=== PATIENT | female | born 1965 | race Caucasian/White ===

== ENCOUNTER 2018-05-03 14:27 | Emergency (ER) | payer BC ==
[2018-05-03 14:40] VITALS: BP 158/94
--- NOTE | 2018-05-03 15:17 | RAD ---
INDICATION: Right foot pain. TECHNIQUE: 3 views of the right foot were obtained. 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 No fracture is seen. There is a small spur arising from the inferior calcaneus. IMPRESSION: NO EVIDENCE FOR FRACTURE.
--- NOTE | 2018-05-03 16:28 | UC ---
Emmanuel Dailey Natalie, scribed for Bao Leggett MD on 05/03/18 at 1552 . Lower Extremity/Ankle HPI - HPI Summary HPI Summary: The patient is a 52 y/o F presenting to [facility] c/o pain and swelling in the plantar side of the right heel starting a few months ago, but worsening in the last three weeks. The pain is currently rated 4/10 in severity, but she states that the pain gets sharp enough to where she can't walk on it. The pain is especially worse in the morning with the 1st step and gets better throughout the day. She states she ran a 5K marathon in February 2018, and the pain seems to have been worsening since then, although she had the pain before running. She denies any injury to the foot. She states she does wear flip flops and shoes without support. She does not have a current orthopedist and has not sought out any medical attention prior to this. - History of Current Complaint Chief Complaint: UCLowerExtremity Stated Complaint: FOOT PAIN Time Seen by Provider: 05/03/18 14:48 Hx Obtained From: Patient Onset/Duration: Gradual Onset, Lasting Weeks, Still Present Severity Initially: Mild Severity Currently: Moderate Pain Intensity: 4 Pain Scale Used: 0-10 Numeric Aggravating Factor(s): Ambulation Alleviating Factor(s): Rest Able to Bear Weight: Yes - Allergies/Home Medications Allergies/Adverse Reactions: Allergies Allergy/AdvReac Type Severity Reaction Status Date / Time No Known Allergies Allergy Verified 05/03/18 14:40 Home Medications: Home Medications Letrozole 1 tab PO DAILY 05/03/18 [History Confirmed 05/03/18] PMH/Surg Hx/FS Hx/Imm Hx - Additional Past Medical History Additional PMH: POSITIVE: breast cancer Previously Healthy: Yes Other Endocrine History: NEGATIVE: diabetes Other Cardiovascular History: negative Other Respiratory History: negative Other GI/ History: negative Other Neurological History: negative Other Psychological History: negative Other Cancer History: negative Other History Of: Negative For: Anticoagulant Therapy - Surgical History Surgical History: Yes Surgery Procedure, Year, and Place: Breast. . Hyster - Family History Known Family History: Positive: Cardiac Disease, Diabetes, Other - CVA - Social History Alcohol Use: Occasionally Substance Use Type: None Smoking Status (MU): Never Smoked Tobacco Review of Systems Skin: Other - POSITIVE: swelling in right plantar region of foot Eyes: Negative ENT: Negative Respiratory: Negative Cardiovascular: Negative Gastrointestinal: Negative Genitourinary: Negative Motor: Negative Neurovascular: Negative Musculoskeletal: Other: - POSITIVE: sharp pain in right plantar region of foot Neurological: Negative Psychological: Negative Is Patient Immunocompromised?: No All Other Systems Reviewed And Are Negative: Yes Physical Exam - Summary Physical Exam Summary: Appearance: Well-Appearing, No Pain Distress, Well-Nourished Eyes: conjunctiva clear, no discharge ENT: Hearing grossly normal, no muffled/hoarse voice. Neck: Normal, Supple Respiratory/Lung Sounds: Lungs clear, Normal breath sounds, No respiratory distress, No accessory muscle use Cardiovascular: RRR, No murmur Abdomen: Nontender, Soft, no guarding, not distended Bowel Sounds: Present Musculoskeletal: Normal Neurological: Alert, muscle tone normal Psychiatric:Normal, age appropriate behavior Skin: Normal, Warm, Dry, Normal color Triage Information Reviewed: Yes Vital Signs: Initial Vital Signs Temp 98.2 F 05/03/18 14:37 Pulse 81 05/03/18 14:37 Resp 12 05/03/18 14:37 BP 158/94 05/03/18 14:37 Pulse Ox 99 05/03/18 14:37 Vital Signs Reviewed: Yes Diagnostics - Radiology Foot XR Xray Interpretation: No Acute Changes - No evidence for fracture. [facility] physician has reviewed this report. Radiology Interpretation Completed By: Radiologist - There is hallux valgus deformity and mild osteoarthritic change in the first metatarsal-phalangeal joint. No fracture is seen. There is a small spur arising from the inferior calcaneus. IMPRESSION: NO EVIDENCE FOR FRACTURE. Lower Extremity Course/Dx - Course Course Of Treatment: The patient is a 52 y/o F presenting to [facility] c/o pain and swelling in the plantar aspect and heel of the right foot starting 3 months ago with gradual worsening especially in the last three weeks. The pain is described as sharp, and she has difficulty walking on it in the morning, but the pain dissipates throughout the day. She denies any injury to the foot, but she did run a 5K marathon in February 2018, which is when the pain seemed to start worsening. She has not seen a provider since the pain began. Medications reviewed. Allergies noted. In the [facility] course, the Right Foot XR is negative for fracture( Final report: hallux valgus deformity and mild osteoarthritic change in the first. metatarsal-phalangeal joint. No fracture is seen.There is a small spur arising from the inferior calcaneus.IMPRESSION: NO EVIDENCE FOR FRACTURE) . Patient will be discharged home with instructions for plantar faschiitis dx and exercises. She is advised to follow up with orthopedist, Dr. Pink in order to start physical therapy in the next two weeks. I also discussed with her to use ice and Ibuprofen as necessary, as well as wearing orthotics and footwear with medial arch support. Patient is agreeable with this plan. - Differential Dx/Diagnosis Provider Diagnoses: plantar faschiitis Discharge - Sign-Out/Discharge Documenting (check all that apply): Discharge/Admit/Transfer - Pt will be discharged home. - Discharge Plan Condition: Stable Disposition: HOME Patient Education Materials: Plantar Fasciitis Exercises (GEN), Plantar Fasciitis (ED) Referrals: Jessee Pink MD [Medical Doctor] - 2 Weeks Myriam Sands MD [Primary Care Provider] - Additional Instructions: Start physical therapy. ice and ibuprofen . Orthotics with medial arch support. foot wear as discussed. Please follow up with orthopedics in 2 weeks. Return to Urgent care / ER if symptoms get worse. - Billing Disposition and Condition Condition: STABLE Disposition: Home The documentation as recorded by the Emmanuel henson Natalie accurately reflects the service I personally performed and the decisions made by me, Bao Leggett MD.
== END 2018-05-03 15:50 | disposition home or self-care (01) ==
LOC: UCEAST 14:27
DX: M72.2 Plantar fascial fibromatosis (principal); Z85.3 Personal history of malignant neoplasm of breast; Z82.49 Family history of ischemic heart disease and other diseases of the circulatory system; Z83.3 Family history of diabetes mellitus; Z82.3 Family history of stroke
CPT/HCPCS: 99211; G0463

== ENCOUNTER 2018-10-31 13:16 | Emergency (ER) | payer BC ==
[2018-10-31 14:28] VITALS: BP 121/86
--- NOTE | 2018-10-31 14:50 | UC ---
Respiratory Complaint HPI - HPI Summary HPI Summary: She is a 53-year-old female who has felt some congestion in the left nasal passages for about 2 weeks. She now has a 3 days of severe sinus pressure and pain postnasal drip and sore throat. She has felt feverish and had chills. She denies any myalgias. Denies any chest pain or shortness of breath. Eyes any nausea vomiting or diarrhea. His have some right upper dental pain and sensitivity. - History of Current Complaint Chief Complaint: UCRespiratory Stated Complaint: SINUS ISSUE Time Seen by Provider: 10/31/18 14:43 Hx Obtained From: Patient Onset/Duration: Gradual Onset, Lasting Weeks Timing: Constant Severity Initially: Mild Severity Currently: Mild Pain Intensity: 3 Pain Scale Used: 0-10 Numeric Character: Cough: Nonproductive Aggravating Factors: Nothing Alleviating Factors: Nothing Associated Signs And Symptoms: Positive: Fever, Chills, URI, Nasal Congestion, Sinus Discomfort - Allergies/Home Medications Allergies/Adverse Reactions: Allergies Allergy/AdvReac Type Severity Reaction Status Date / Time No Known Allergies Allergy Verified 10/31/18 14:27 Home Medications: Home Medications Dm/PE/Acetaminophen/Doxylamine [Vicks Nyquil Severe Cold-Flu] 1 each PO ONCE PRN 10/31/18 [History Confirmed 10/31/18] PMH/Surg Hx/FS Hx/Imm Hx Previously Healthy: Yes Cancer History: Breast Cancer Other History Of: Negative For: Anticoagulant Therapy - Surgical History Surgical History: Yes Surgery Procedure, Year, and Place: Breast. . ovarian fallopian tubes removed - Family History Known Family History: Positive: Cardiac Disease, Hypertension, Diabetes, Other - CVA - Social History Alcohol Use: Occasionally Substance Use Type: None Smoking Status (MU): Never Smoked Tobacco Review of Systems All Other Systems Reviewed And Are Negative: Yes Constitutional: Positive: Fatigue Skin: Positive: Negative Eyes: Positive: Negative ENT: Positive: Dental Pain, Nasal Discharge, Sinus Congestion, Sinus Pain/ Tenderness Respiratory: Positive: Cough Cardiovascular: Positive: Negative Gastrointestinal: Positive: Negative Genitourinary: Positive: Negative Motor: Positive: Negative Neurovascular: Positive: Negative Musculoskeletal: Positive: Negative Neurological: Positive: Negative Psychological: Positive: Negative Is Patient Immunocompromised?: No Physical Exam Triage Information Reviewed: Yes Appearance: Well-Appearing, No Pain Distress, Well-Nourished Vital Signs: Initial Vital Signs Temp 99.1 F 10/31/18 14:23 Pulse 71 10/31/18 14:23 Resp 18 10/31/18 14:23 BP 121/86 10/31/18 14:23 Pulse Ox 100 10/31/18 14:23 Vital Signs Reviewed: Yes Eyes: Positive: Conjunctiva Clear ENT: Positive: Hearing grossly normal, Nasal congestion, Nasal drainage, Sinus tenderness Dental Exam: Normal Neck: Positive: Supple, Nontender, No Lymphadenopathy Respiratory: Positive: Lungs clear, Normal breath sounds, No respiratory distress, No accessory muscle use Cardiovascular: Positive: RRR, No Murmur Musculoskeletal: Positive: ROM Intact, No Edema Neurological: Positive: Alert Psychological Exam: Normal Skin Exam: Normal UC Diagnostic Evaluation - Laboratory O2 Sat by Pulse Oximetry: 100 - normal/not hypoxic Respiratory Course/Dx - Differential Dx/Diagnosis Provider Diagnosis: Acute sinusitis Discharge - Sign-Out/Discharge Documenting (check all that apply): Patient Departure All imaging exams completed and their final reports reviewed: No - Discharge Plan Condition: Stable Disposition: HOME Prescriptions: Amoxicillin PO (*) [Amoxicillin 875 MG (*)] 875 mg PO BID #14 tab Fluticasone NASAL SPRAY 50MCG* [Flonase NASAL SPRAY 50MCG*] 2 spray BOTH NARES BID #1 btl Patient Education Materials: Sinusitis (ED), Warm Compress or Soak (ED) Referrals: Myriam Sands MD [Primary Care Provider] - 5 Days (if not better) Additional Instructions: saline nasal spray two sprays each nostril twice daily use flonase about 5 minutes later recheck next week if not better - Billing Disposition and Condition Condition: STABLE Disposition: Home
== END 2018-10-31 14:57 | disposition home or self-care (01) ==
LOC: UCEAST 13:16
DX: J01.90 Acute sinusitis, unspecified (principal)
CPT/HCPCS: 99212; G0463